=== PATIENT | female | born 1995 | race Caucasian/White ===

== ENCOUNTER 2018-01-25 20:19 | Emergency (ER) | payer BC ==
[~2018-01-25] VITALS: Ht 154.9 cm; Wt 73.9 kg
[2018-01-25 20:24] VITALS: TEMP 36.9; Ht 154.9 cm; Wt 73.9 kg
[2018-01-25 21:37] LABS: BASO % 0.3 %; BASO ABS # 0.03 K/uL (0-0.2); EOS % 3.2 %; EOS ABS # 0.28 K/uL (0-0.5); HEMATOCRIT 40.6 % (37-47); HEMOGLOBIN 13.9 g/dL (12.0-16.0); IG# 0.02 K/uL (0.00-0.02); LYMPH % 37.7 %; LYMPH ABS # 3.25 K/uL (1.2-3.4); MEAN CELL VOLUME 88.6 fL (80-100); MEAN CORPUSCULAR HEMOGLOBIN 30.3 pg (25-34); MEAN CORPUSCULAR HGB CONC 34.2 g/dl (32-36); MEAN PLATELET VOLUME 9.5 fL (7.4-10.4); MONO ABS # 0.69 K/uL (0.11-0.59); NEUT % 50.6 %; NEUT ABS # 4.36 K/uL (1.4-6.5); PLATELET COUNT 239 K/uL (130-400); RED CELL DISTRIBUTION WIDTH CV 12.6 % (11.5-14.5); RED CELL DISTRIBUTION WIDTH SD 40.4 fL (36.4-46.3); WHITE BLOOD COUNT 8.63 K/uL (4.8-10.8)
[2018-01-25 22:08] LABS: ALBUMIN 3.5 gm/dl (3.4-5.0); CALCIUM 9.1 mg/dl (8.5-10.1); CREATININE 0.85 mg/dl (0.60-1.20); TOTAL PROTEIN 7.5 gm/dl (6.4-8.2)
--- NOTE | 2018-01-25 22:20 | EMERGENCY ROOM VISIT NOTE ---
History Report prepared by Ron: Becky Ramos Under the Supervision of: Dr. Davide Newman D.O. First contact with patient: 20:57 Chief Complaint: MENTAL HEALTH EVALUATION Stated Complaint: FEELING SUICIDAL History of Present Illness The patient is a 22 year old female who presents to the Emergency Room with complaints of worsening depression over the past week. She started feeling suicidal throughout the week. This worsened today after she had a fight with her boyfriend. The patient is also feeling stressed out from school and has also been alone in her apartment for the past week. She is afraid to go home because she is worried that she might hurt herself. She tried scratching herself on the wrist yesterday. She has tried hurting herself in the past and states that she does it because it makes her feel better momentarily. She has no plan on how she wants to kill herself. She states that she thought about crashing her car today. The patient has a history of depression and is on Geodon. She has not had inpatient psychiatric care in the past. She currently sees a therapist. She admits to occasional alcohol use. She denies any drug use. Source of History: patient Onset: past week Position: other (mental health) Quality: other (depression) Timing: worsening Note: Pt reports suicidal ideation. Review of Systems See HPI for pertinent positives & negatives. A total of 10 systems reviewed and were otherwise negative. Past Medical & Surgical Medical Problems: (1) Depression Family History No pertinent family history stated. Social History Smoking Status: Never Smoker Alcohol Use: occasionally Drug Use: none Marital Status: in relationship Occupation Status: [employer] student Physical Exam Vital Signs Date Time Temp Pulse Resp B/P (MAP) Pulse Ox O2 Delivery O2 Flow Rate FiO2 01/25/18 21:57 79 20 136/94 97 Room Air 01/25/18 20:24 36.9 77 18 150/95 98 Room Air Physical Exam CONSTITUTIONAL/VITAL SIGNS: Reviewed / noted above. GENERAL: Non-toxic in appearance. INTEGUMENTARY: Warm, dry, and [place]. HEAD: Normocephalic. EYES: without scleral icterus or trauma. ENT/OROPHARYNX: clear and moist. LYMPHADENOPATHY/NECK: Is supple without lymphadenopathy or meningismus. RESPIRATORY: Lungs clear and equal. CARDIOVASCULAR: Regular rate and rhythm. GI/ABDOMEN: Soft and nontender. No organomegaly or pulsatile mass. No rebound or guarding. Normal bowel sounds. EXTREMITIES: Warm and well perfused. Light abrasions to the left wrist. BACK: No CVA tenderness. NEUROLOGICAL: Intact without focal deficits. PSYCHIATRIC: depressed tearful affect. MUSCULOSKELETAL: Normally developed with good muscle tone. Medical Decision & Procedures Laboratory Results 01/25/18 21:21 Red Blood Count 4.58, Mean Corpuscular Volume 88.6, Mean Corpuscular Hemoglobin 30.3, Mean Corpuscular Hemoglobin Concent 34.2, Mean Platelet Volume 9.5, Neutrophils (%) (Auto) 50.6, Lymphocytes (%) (Auto) 37.7, Monocytes (%) (Auto) 8.0, Eosinophils (%) (Auto) 3.2, Basophils (%) (Auto) 0.3, Neutrophils # (Auto) 4.36, Lymphocytes # (Auto) 3.25, Monocytes # (Auto) 0.69, Eosinophils # (Auto) 0.28, Basophils # (Auto) 0.03 01/25/18 21:21 Test 01/25/18 20:40 01/25/18 21:21 Urine Color YELLOW Urine Appearance CLEAR (CLEAR) Urine pH 5.0 (4.5-7.5) Urine Specific [place] 1.022 (1.000-1.030) Urine Protein NEG (NEG) Urine Glucose (UA) NEG (NEG) Urine Ketones NEG (NEG) Urine Occult Blood 1+ (NEG) Urine Nitrite NEG (NEG) Urine Bilirubin NEG (NEG) Urine Urobilinogen NEG (NEG) Urine Leukocyte Esterase NEG (NEG) Urine WBC (Auto) 1-5 /hpf (0-5) Urine RBC (Auto) 5-10 /hpf (0-4) Urine Hyaline Casts (Auto) 1-5 /lpf (0-5) Urine Epithelial Cells (Auto) >30 /lpf (0-5) Urine Bacteria (Auto) NEG (NEG) Urine Test NEG (NEG) Urine Opiates Screen NEG (NEG) Urine Methadone, Qualitative NEG (NEG) Urine Barbiturates NEG (NEG) Urine Phencyclidine (PCP) Level NEG (NEG) Ur Amphetamine/Methamphetamine NEG (NEG) MDMA (Ecstasy) Screen NEG (NEG) Urine Benzodiazepines Screen NEG (NEG) Urine Cocaine Metabolite NEG (NEG) Urine Marijuana (THC) NEG (NEG) White Blood Count 8.63 K/uL (4.8-10.8) Red Blood Count 4.58 M/uL (4.2-5.4) Hemoglobin 13.9 g/dL (12.0-16.0) Hematocrit 40.6 % (37-47) Mean Corpuscular Volume 88.6 fL (80-100) Mean Corpuscular Hemoglobin 30.3 pg (25-34) Mean Corpuscular Hemoglobin Concent 34.2 g/dl (32-36) Platelet Count 239 K/uL (130-400) Mean Platelet Volume 9.5 fL (7.4-10.4) Neutrophils (%) (Auto) 50.6 % Lymphocytes (%) (Auto) 37.7 % Monocytes (%) (Auto) 8.0 % Eosinophils (%) (Auto) 3.2 % Basophils (%) (Auto) 0.3 % Neutrophils # (Auto) 4.36 K/uL (1.4-6.5) Lymphocytes # (Auto) 3.25 K/uL (1.2-3.4) Monocytes # (Auto) 0.69 K/uL (0.11-0.59) Eosinophils # (Auto) 0.28 K/uL (0-0.5) Basophils # (Auto) 0.03 K/uL (0-0.2) RDW Standard Deviation 40.4 fL (36.4-46.3) RDW Coefficient of Variation 12.6 % (11.5-14.5) Immature Granulocyte % (Auto) 0.2 % Immature Granulocyte # (Auto) 0.02 K/uL (0.00-0.02) Anion Gap 3.0 mmol/L (3-11) Est Creatinine Clear Calc Drug Dose 94.6 ml/min Estimated GFR () 111.9 Estimated GFR (Non- 96.6 BUN/Creatinine Ratio 11.7 (10-20) Calcium Level 9.1 mg/dl (8.5-10.1) Total Bilirubin 0.2 mg/dl (0.2-1) Aspartate Amino Transf (AST/SGOT) 15 U/L (15-37) Alanine Aminotransferase (ALT/SGPT) 21 U/L (12-78) Alkaline Phosphatase 73 U/L (45-117) Total Protein 7.5 gm/dl (6.4-8.2) Albumin 3.5 gm/dl (3.4-5.0) Globulin 4.0 gm/dl (2.5-4.0) Albumin/Globulin Ratio 0.9 (0.9-2) Thyroid Stimulating Hormone (TSH) 1.570 uIu/ml (0.300-4.500) Chemistry Specimen Hemolysis Salicylates Level < 1.7 mg/dl (2.8-20) Acetaminophen Level < 2 ug/ml (10-30) Ethyl Alcohol mg/dL < 3.0 mg/dl (0-3) Laboratory results as stated above per my review. ED Course 2057: Previous medical records were reviewed. The patient was evaluated in room A8. A complete history and physical examination was performed. 0: The patient is refusing voluntary admission. A 302 will be signed. 2330: The patient was signed out to Dr. Michele at the end of my shift. Medical Decision differential includes toxic ingestions, self-mutilation, suicidal ideation, suicide attempt, depression. This is a 22-year-old female who presents to the ED with a chief complaint of depression and suicidal thoughts. The patient states that she has had about a week. She is stressed about school, she states that she is alone and today had a fight with her boyfriend. The boyfriend lives in [place]. She states that last night she was upset and went home and scratched her left wrist. Today she was thinking that she does not want to live anymore. She thought that she might scratch herself again when she gets home. She was also thinking about possibly crashing her car. She denies any other significant issues. She reports having issues with depression and does see a therapist as an outpatient. The patient is here voluntarily. She is cooperative. The patient' s physical exam was unremarkable other than depressed and somewhat tearful affect. Her blood work, urinalysis and tox screen was unremarkable and she is medically cleared for mental health evaluation. She did report to the psychiatric case packer and sealer that she thinks about suicide daily. The patient will be signed out to the night doc (Dr. Michele) for ultimate disposition. I have singed the 302 petition on the patient that was filled out by Nani the psychiatric case packer and sealer as the patient decided she did not want to be voluntary. Medication Reconcilliation Current Medication List: was personally reviewed by me Blood Pressure Screening Patient's blood pressure: Elevated blood pressure Blood pressure disposition: Elevated BP felt to be situational Impression Primary Impression: Depression Additional Impression: Suicidal ideation Scribe Attestation The scribe's documentation has been prepared under my direction and personally reviewed by me in its entirety. I confirm that the note above accurately reflects all work, treatment, procedures, and medical decision making performed by me. Departure Information Dispostion Still a Patient Referrals No Doctor, Assigned (PCP) Patient Instructions My [facility] Problem Qualifiers
[2018-01-25] MEDS ORDERED: ZIPR1CAP4 PO (23:33)
[2018-01-25] MEDS ORDERED: HYDR1CAP85 PO (23:41)
[2018-01-26] MEDS ORDERED: ZIPRASIDONE 20 MG CAP PO STA (00:04)
[2018-01-26] MEDS ORDERED: hydrOXYzine HCL 25 MG TAB PO STA (01:16)
--- NOTE | 2018-01-26 06:59 | EMERGENCY ROOM VISIT NOTE ---
ED Visit Note First contact with patient: 23:58 22 yr old female arrives for suicidal ideation and initially medically cleared and then [address] Newman as patient was making multiple suicidal statement to several staff. Signed out to me awaiting placement. I had long discussion with patient regarding 302 and fact that given earlier statements and evaluations she would need to be placed at psychiatric facility. She was given her evening (and then morning) Geodon, along with a dose of vistaril. I also (with patient's permission) discussed this with her mother at bedside to make her aware of the findings and plan of care. Patient stable throughout the evening and accepted to [facility] for further treatment/evaluation.
[2018-01-26] MEDS ORDERED: ZIPRASIDONE 20 MG CAP PO SCH (09:00)
[2018-01-26 09:07] VITALS: BP 139/87; PULSE 84; O2SAT 100
== END 2018-01-26 09:06 ==
LOC: C.EDB 20:19 → C.EDA 01-26 09:06
DX: F32.9 Major depressive disorder, single episode, unspecified (principal); R45.851 Suicidal ideations; Z79.899 Other long term (current) drug therapy